=== PATIENT | male | born 1995 | race American Indian/Alaskan Native ===

== ENCOUNTER 2020-08-07 18:29 | Emergency (ER) | payer SELFPAY ==
[2020-08-07 18:41] VITALS: BP 131/73
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
== END 2020-08-07 21:00 | disposition home or self-care (01) ==
LOC: ED 18:29
DX: S39.012A Strain of muscle, fascia and tendon of lower back, initial encounter (principal); Z79.899 Other long term (current) drug therapy; V49.49XA Driver injured in collision with other motor vehicles in traffic accident, initial encounter; Y93.89 Activity, other specified; Y92.488 Other paved roadways as the place of occurrence of the external cause; Y99.8 Other external cause status
CPT/HCPCS: 72070; 72100; 99283

== ENCOUNTER 2020-10-11 00:25 | Emergency (ER) | payer SELFPAY ==
[2020-10-11 00:32] VITALS: BP 130/59
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
== END 2020-10-11 01:51 | disposition home or self-care (01) ==
LOC: ED 00:25
DX: S63.635A Sprain of interphalangeal joint of left ring finger, initial encounter (principal); S60.042A Contusion of left ring finger without damage to nail, initial encounter; F17.200 Nicotine dependence, unspecified, uncomplicated; F12.10 Cannabis abuse, uncomplicated; Z79.899 Other long term (current) drug therapy; X58.XXXA Exposure to other specified factors, initial encounter; Y93.89 Activity, other specified; Y92.89 Other specified places as the place of occurrence of the external cause; Y99.8 Other external cause status
CPT/HCPCS: 99283